=== PATIENT | female | born 1965 | race Caucasian/White ===

== ENCOUNTER 2018-06-16 14:13 | Emergency (ER) | payer OTHER ==
[2018-06-16 14:30] VITALS: BP 127/84; PULSE 70; TEMP 99; BMI 34.4
--- NOTE | 2018-06-16 16:09 | PDOC ---
History of Present Illness - History of Present Illness Initial Comments: 06/16/18 18:43 The patient is a 53 year old female with past medical history of depression and hypothyroidism who presents to the ED with complaints of shortness of breath that began yesterday while at her psychiatrists office. She states that while at her appointment she began having left arm pain that radiated upward as well as lightheadedness followed by shortness of breath. All of her symptoms have since subsided aside from her shortness of breath. She denies any palpitations, syncope, chest pain or lower extremity swelling. Denies any fevers or chills. <Sonal Tipton - Last Filed: 06/16/18 18:43> <Jay Villeda - Last Filed: 06/16/18 21:03> - General History Source: Patient Exam Limitations: No Limitations <Sandi Dasilva - Last Filed: 06/18/18 00:40> - General Chief Complaint: Shortness of Breath Stated Complaint: SHARP PAIN ON THE LEFT ARM/DISSY Time Seen by Provider: 06/16/18 16:09 Past History <Sonal Tipton - Last Filed: 06/16/18 18:43> <Jay Villeda - Last Filed: 06/16/18 21:03> - Past Medical History COPD: No Psychiatric Problems: Yes (DEPRESSION) Thyroid Disease: Yes - Suicide/Smoking/Psychosocial Hx Smoking History: Never smoked <aSndi Dasilva - Last Filed: 06/18/18 00:40> - Past Medical History Allergies/Adverse Reactions: Allergies Allergy/AdvReac Type Severity Reaction Status Date / Time codeine AdvReac Intermediate Nausea Verified 06/16/18 14:26 Home Medications: Ambulatory Orders Venlafaxine HCl [Effexor -] 100 mg PO TID 12/17/13 Review of Systems - Review of Systems Able to Perform ROS?: Yes Comments:: 06/16/18 18:43 GENERAL/CONSTITUTIONAL: No fever or chills. No weakness. HEAD, EYES, EARS, NOSE AND THROAT: No change in vision. No ear pain or discharge. No sore throat. CARDIOVASCULAR: (+) SOB. No chest pain. RESPIRATORY: No cough, wheezing, or hemoptysis. GASTROINTESTINAL: No nausea, vomiting, diarrhea or constipation. GENITOURINARY: No dysuria, frequency, or change in urination. MUSCULOSKELETAL: No joint or muscle swelling or pain. No neck or back pain. SKIN: No rash NEUROLOGIC: No headache, vertigo, loss of consciousness, or change in strength/ sensation. ENDOCRINE: No increased thirst. No abnormal weight change. HEMATOLOGIC/LYMPHATIC: No anemia, easy bleeding, or history of blood clots. ALLERGIC/IMMUNOLOGIC: No hives or skin allergy. All Other Systems: Reviewed and Negative <Sonal Tipton - Last Filed: 06/16/18 18:43> *Physical Exam - Vital Signs Last Vital Signs Temp Pulse Resp BP Pulse Ox 99 F 70 17 127/84 99 06/16/18 14:27 06/16/18 14:27 06/16/18 14:27 06/16/18 14:27 06/16/18 14:27 - Physical Exam Comments: 06/16/18 18:44 GENERAL: Awake, alert, and fully oriented, in no acute distress HEAD: No signs of trauma EYES: Strabismus. PERRLA, EOMI, sclera anicteric, conjunctiva clear ENT: Auricles normal inspection, hearing grossly normal, nares patent, oropharynx clear without exudates. Moist mucosa NECK: Normal ROM, supple, no lymphadenopathy, JVD, or masses LUNGS: Breath sounds equal, clear to auscultation bilaterally. No wheezes, and no crackles HEART: Regular rate and rhythm, normal S1 and S2, no murmurs, rubs or gallops ABDOMEN: Soft, nontender, normoactive bowel sounds. No guarding, no rebound. No masses EXTREMITIES: Normal range of motion, no edema. No clubbing or cyanosis. No cords, erythema, or tenderness NEUROLOGICAL: Cranial nerves II through XII grossly intact. Normal speech, normal gait SKIN: Warm, Dry, normal turgor, no rashes or lesions noted. <Sonal Tipton - Last Filed: 06/16/18 18:43> - Vital Signs Last Vital Signs Temp Pulse Resp BP Pulse Ox 99 F 70 17 127/84 99 06/16/18 14:27 06/16/18 14:27 06/16/18 14:27 06/16/18 14:27 06/16/18 14:27 <Jay Villeda - Last Filed: 06/16/18 21:03> - Vital Signs Last Vital Signs Temp Pulse Resp BP Pulse Ox 99 F 70 17 127/84 99 06/16/18 14:27 06/16/18 14:27 06/16/18 14:27 06/16/18 14:27 06/16/18 14:27 <Sandi Dasilva - Last Filed: 06/18/18 00:40> ED Treatment Course - LABORATORY CBC & Chemistry Diagram: 06/16/18 17:11 06/16/18 17:11 - ADDITIONAL ORDERS Additional order review: Laboratory Results 06/16/18 17:11 Sodium 141 Potassium 3.6 Chloride 106 Carbon Dioxide 26 Anion Gap 9 BUN 10 Creatinine 0.7 Creat Clearance w eGFR > 60 Random Glucose 91 Calcium 9.2 Total Bilirubin 0.3 AST 18 ALT 25 Alkaline Phosphatase 88 Creatine Kinase 75 Troponin I < 0.02 B-Natriuretic Peptide 55.50 Total Protein 7.2 Albumin 4.0 06/16/18 17:11 RBC 4.15 MCV 87.6 MCHC 33.8 RDW 14.0 MPV 8.7 Neutrophils % 58.1 Lymphocytes % 31.6 Monocytes % 8.1 Eosinophils % 1.8 Basophils % 0.4 <Sonal Tipton - Last Filed: 06/16/18 18:43> - LABORATORY CBC & Chemistry Diagram: 06/16/18 17:11 06/16/18 17:11 - ADDITIONAL ORDERS Additional order review: Laboratory Results 06/16/18 06/16/18 17:54 17:11 D-Dimer Cancelled Sodium 141 Potassium 3.6 Chloride 106 Carbon Dioxide 26 Anion Gap 9 BUN 10 Creatinine 0.7 Creat Clearance w eGFR > 60 Random Glucose 91 Calcium 9.2 Total Bilirubin 0.3 AST 18 ALT 25 Alkaline Phosphatase 88 Creatine Kinase 75 Troponin I < 0.02 B-Natriuretic Peptide 55.50 Total Protein 7.2 Albumin 4.0 06/16/18 17:11 RBC 4.15 MCV 87.6 MCHC 33.8 RDW 14.0 MPV 8.7 Neutrophils % 58.1 Lymphocytes % 31.6 Monocytes % 8.1 Eosinophils % 1.8 Basophils % 0.4 <Jay Villeda - Last Filed: 06/16/18 21:03> - LABORATORY CBC & Chemistry Diagram: 06/16/18 17:11 06/16/18 17:11 <Sadni Dasilva - Last Filed: 06/18/18 00:40> Medical Decision Making - Medical Decision Making 06/16/18 18:54 EKG: SR rate of 66 bpm, axis nml, intervals nml, no st elevations or depressions, t wave flattening 06/16/18 18:55 Laboratory Tests 06/16/18 06/16/18 17:11 17:11 WBC 6.0 Hgb 12.3 Hct 36.4 Plt Count 216 BUN 10 Creatinine 0.7 Creatine Kinase 75 Troponin I < 0.02 B-Natriuretic Peptide 55.50 CTA pending Pt states she feels better Pt can be discharged to home if CTA negative 06/16/18 18:[address] Villeda <Sandi Dasilva - Last Filed: 06/18/18 00:40> *DC/Admit/Observation/Transfer - Attestations Scribe Attestion: 06/16/18 18:46 Documentation prepared by Sonal Tipton, acting as quality engineer medical device for Sandi Dasilva MD. <Sonal Tipton - Last Filed: 06/16/18 18:43> <aJy Villeda - Last Filed: 06/16/18 21:03> <Sandi Dasilva - Last Filed: 06/18/18 00:40> Diagnosis at time of Disposition: Shortness of breath - Discharge Dispostion Disposition: HOME Condition at time of disposition: Stable - Referrals Referrals: Mohsen Larkin MD [Primary Care Provider] - - Patient Instructions Printed Discharge Instructions: DI for Shortness of Breath Additional Instructions: Please follow up with your doctor as soon as possible if symptoms return . All labs and Cat Scan that was done return to be negative. - Post Discharge Activity
[2018-06-16 18:01] LABS: BASO % 0.4 % (0-2.0); EOS % 1.8 % (0-4.5); HEMATOCRIT 36.4 % (32.4-45.2); HEMOGLOBIN 12.3 GM/dL (10.7-15.3); LYMPH % 31.6 % (8-40); MCH 29.6 pg (25.7-33.7); MCHC 33.8 g/dl (32.0-36.0); MEAN CELL VOLUME 87.6 fl (80-96); MEAN PLT VOLUME 8.7 fl (7.5-11.1); MONO % 8.1 % (3.8-10.2); NEUT % 58.1 % (42.8-82.8); PLATELET COUNT 216 K/MM3 (134-434); RBC 4.15 M/mm3 (3.60-5.2)
[2018-06-16 18:16] LABS: ALK PHOS 88 U/L (45-117); ANION GAP 9 MMOL/L (8-16); BILIRUBIN,TOTAL 0.3 mg/dL (0.2-1.0); BLOOD UREA NITROGEN 10 mg/dL (7-18); CALCIUM 9.2 mg/dL (8.5-10.1); CHLORIDE 106 mmol/L (98-107); CO2 26 mmol/L (21-32); CREATININE 0.7 mg/dL (0.55-1.02); GLUCOSE,RANDOM 91 mg/dL (74-106); POTASSIUM 3.6 mmol/L (3.5-5.1); SGOT/AST 18 U/L (15-37); SGPT/ALT 25 U/L (12-78); SODIUM 141 mmol/L (136-145); TOT PROT 7.2 g/dl (6.4-8.2)
--- NOTE | 2018-06-16 21:10 | PDOC ---
*Physical Exam - Vital Signs Last Vital Signs Temp Pulse Resp BP Pulse Ox 99 F 70 17 127/84 99 06/16/18 14:27 06/16/18 14:27 06/16/18 14:27 06/16/18 14:27 06/16/18 14:27 ED Treatment Course - LABORATORY CBC & Chemistry Diagram: 06/16/18 17:11 06/16/18 17:11 - ADDITIONAL ORDERS Additional order review: Laboratory Results 06/16/18 06/16/18 17:54 17:11 D-Dimer Cancelled Sodium 141 Potassium 3.6 Chloride 106 Carbon Dioxide 26 Anion Gap 9 BUN 10 Creatinine 0.7 Creat Clearance w eGFR > 60 Random Glucose 91 Calcium 9.2 Total Bilirubin 0.3 AST 18 ALT 25 Alkaline Phosphatase 88 Creatine Kinase 75 Troponin I < 0.02 B-Natriuretic Peptide 55.50 Total Protein 7.2 Albumin 4.0 06/16/18 17:11 RBC 4.15 MCV 87.6 MCHC 33.8 RDW 14.0 MPV 8.7 Neutrophils % 58.1 Lymphocytes % 31.6 Monocytes % 8.1 Eosinophils % 1.8 Basophils % 0.4 *DC/Admit/Observation/Transfer Diagnosis at time of Disposition: Shortness of breath - Discharge Dispostion Disposition: HOME Condition at time of disposition: Stable Decision to Admit order: No - Referrals Referrals: Mohsen Larkin MD [Primary Care Provider] - - Patient Instructions Printed Discharge Instructions: DI for Shortness of Breath Additional Instructions: Please follow up with your doctor as soon as possible if symptoms return . All labs and Cat Scan that was done return to be negative. - Post Discharge Activity
--- NOTE | 2018-06-17 11:52 | EKG ---
Test Reason : Blood Pressure : / mmHG Vent. Rate : 066 BPM Atrial Rate : 066 BPM P-R Int : 162 ms QRS Dur : 084 ms QT Int : 416 ms P-R-T Axes : 019 054 009 degrees QTc Int : 436 ms POOR DATA QUALITY, INTERPRETATION MAY BE ADVERSELY AFFECTED NORMAL SINUS RHYTHM NONSPECIFIC ST ABNORMALITY ABNORMAL ECG WHEN COMPARED WITH ECG OF 16-JUN-2018 14:27, NO SIGNIFICANT CHANGE WAS FOUND Confirmed by SORAIDA ALANIZ, IVETT ([id number]) on 06/17/2018 11:51:45 AM Referred By: Confirmed By:IVETT QUIGLEY MD
--- NOTE | 2018-06-21 14:12 | EKG ---
Test Reason : Blood Pressure : / mmHG Vent. Rate : 066 BPM Atrial Rate : 066 BPM P-R Int : 184 ms QRS Dur : 088 ms QT Int : 408 ms P-R-T Axes : 035 029 014 degrees QTc Int : 427 ms NORMAL SINUS RHYTHM NORMAL ECG NO PREVIOUS ECGS AVAILABLE Confirmed by ALIREZA JULIAN MD ([id number]) on 06/21/2018 2:12:02 PM Referred By: Confirmed By:ALIREZA JULIAN MD
== END 2018-06-16 21:15 | disposition home or self-care (01) ==
LOC: JER 14:13
DX: R06.02 Shortness of breath (principal); F41.9 Anxiety disorder, unspecified; E03.9 Hypothyroidism, unspecified
CPT/HCPCS: 36415; 71275-TC; 80053; 82550; 83880; 84484; 84703; 85025; 93005; 93010; 99282-25

== ENCOUNTER 2022-08-04 16:11 | Emergency (ER) | payer OTHER ==
[2022-08-04 16:17] VITALS: BP 139/81; PULSE 79; RESP 18; TEMP 98.7; BMI 30.9
[2022-08-04] MEDS ORDERED: IBUPROFEN 600 MG TABLET (FP) PO ONE ×2 (17:12→17:26)
== END 2022-08-04 19:23 | disposition home or self-care (01) ==
LOC: JER 16:11 → JERFT 16:11
DX: S99.192A Other physeal fracture of left metatarsal, initial encounter for closed fracture (principal); W10.8XXA Fall (on) (from) other stairs and steps, initial encounter
CPT/HCPCS: 73610-TC-LT-FY; 73630-TC-LT; 99283-25